=== PATIENT | male | born 1955 | race Two or more races ===

== ENCOUNTER → 2017-01-19 | Outpatient (CLI) | payer BC | LOC: BRMIMAGING 10:03 | PROVIDERS: ATTEND Internal Medicine | DX: Z13.820 Encounter for screening for osteoporosis (principal); M85.80 Other specified disorders of bone density and structure, unspecified site; E29.1 Testicular hypofunction ==

== ENCOUNTER → 2018-04-03 | Outpatient (CLI) | payer BC | LOC: CIMAGING 16:43 | PROVIDERS: ATTEND Family Medicine | DX: R07.9 Chest pain, unspecified (principal) | CPT/HCPCS: 71046-PO ==